=== PATIENT | male | born 1955 | race Caucasian/White ===

== ENCOUNTER 2016-04-16 05:08 | Inpatient (IN) | payer BC ==
[~2016-04-16] VITALS: Ht 190.5 cm; Wt 141.4 kg
[~2016-04-16 05:08] MED LIST: ASPI325T6 PO; BETAPACE 80MG80 MG PO; CEPHALEXIN500 M1 PO; COUMADIN4 MG PO; LIPITOR 80MG80 MG PO; NORCO 325 MG-51 TAB PO; SYNTHROID0.175 MG PO; TYLENOL 325MG325 MG PO
[2016-04-16] MEDS ORDERED: COUMADIN4 MG PO (05:22)
[2016-04-16] MEDS ORDERED: BETAPACE 120MG120 MG PO (05:22)
[2016-04-16] MEDS ORDERED: LIPITOR 40MG TA40 MG PO (05:24)
[2016-04-16] MEDS ORDERED: PROAIR HFA0.09 MG/AC IH (05:24)
[2016-04-16] MEDS ORDERED: BETAPACE 80MG80 MG PO (05:25)
[2016-04-16 05:46] LABS: BASO % 0.4 % (0.0-2.0); EOS # 0.3 (0.0-0.7); EOS % 4.2 % (0-4.0); GRAN # 4.6 (1.4-6.5); GRAN % 66.4 % (42.2-75.2); HEMATOCRIT 41.5 % (42.0-52.0); HEMOGLOBIN 14.4 g/dl (13.5-18.0); LYMPH # 1.2 (1.2-3.4); LYMPH % 17.3 % (20.0-51.0); MEAN CELL VOLUME 95 fl (80.0-100.0); MEAN CORPUSCULAR HEMOGLOBIN 33 pg (27.0-31.0); MEAN CORPUSCULAR HGB CONC 35 g/dl (33.0-37.0); MEAN PLATELET VOLUME 9.5 fl (7.4-10.4); MONO # 0.8 (0.1-0.6); MONO % 11.6 % (1.7-9.3); PLATELET COUNT 202 K/mm3 (130-400); RED BLOOD COUNT 4.38 M/mm3 (4.20-5.60); REDCELL DISTRIBUTION WIDTH-CV 12.2 % (11.5-14.5); WHITE BLOOD COUNT 6.9 K/mm3 (4.8-10.8)
[2016-04-16 05:56] LABS: INR 1.8 (0.8-3.0); PROTHROMBIN TIME 20.6 SECONDS (9.7-12.8)
[2016-04-16 05:58] LABS: ADJUSTED CALCIUM 8.8 mg/dL (8.4-10.2); ALANINE AMINOTRANSFERASE 32 U/L (21-72); ALBUMIN 3.7 gm/dL (3.5-5.0); ALKALINE PHOSPHATASE 68 U/L (50-136); ANION GAP 12 mmol/L (7-16); BLOOD UREA NITROGEN 14 mg/dL (9-20); CALCIUM 8.6 mg/dL (8.4-10.2); CARBON DIOXIDE 24 mmol/L (22-30); CHLORIDE 100 mmol/L (98-107); CREATININE, serum 0.83 mg/dL (0.66-1.25); GLUCOSE 101 mg/dL (74-106); POTASSIUM 4.1 mmol/L (3.4-5.0); SODIUM 135 mmol/L (137-145); TOTAL PROTEIN 6.9 gm/dL (6.4-8.2)
[2016-04-16 06:09] LABS: B-TYPE NATRIURETIC PEPTIDE 373 pg/mL (0-125)
[2016-04-16 06:14] LABS: TROPONIN-I < 0.012 ng/mL (0.000-0.034)
[2016-04-16 09:40] VITALS: BP 102/74; PULSE 92; TEMP 99.1
[2016-04-16 12:47] VITALS: BP 125/55; PULSE 73; TEMP 98.4
[2016-04-16 13:43] LABS: INFLUENZA B NEGATIVE
[2016-04-16 16:46] VITALS: BP 116/57; PULSE 69; TEMP 98.4
[2016-04-16 20:06] VITALS: BP 127/69; PULSE 63; TEMP 97.8
[2016-04-16 23:08] VITALS: BP 105/48; PULSE 61; TEMP 97.4
[2016-04-17] VITALS (7 sets, daily range): BP systolic 98–121; BP diastolic 51–60; PULSE 59–65; TEMP 97.6–98.6
[2016-04-17 13:33] LABS: INR 2.6 (0.8-3.0); PROTHROMBIN TIME 29.9 SECONDS (9.7-12.8)
[2016-04-18 04:10] VITALS: BP 124/61; PULSE 68; TEMP 97.9
[2016-04-18 07:23] LABS: HEMATOCRIT 41.2 % (42.0-52.0); HEMOGLOBIN 13.9 g/dl (13.5-18.0); MEAN CELL VOLUME 97 fl (80.0-100.0); MEAN CORPUSCULAR HEMOGLOBIN 33 pg (27.0-31.0); MEAN CORPUSCULAR HGB CONC 34 g/dl (33.0-37.0); PLATELET COUNT 222 K/mm3 (130-400); RED BLOOD COUNT 4.26 M/mm3 (4.20-5.60); REDCELL DISTRIBUTION WIDTH-CV 12.8 % (11.5-14.5); WHITE BLOOD COUNT 16.9 K/mm3 (4.8-10.8)
[2016-04-18 07:29] LABS: ADD PATHOLOGY DIFF REVIEW NO
[2016-04-18 07:42] VITALS: BP 123/62; PULSE 66; TEMP 97.6
[2016-04-18 07:59] LABS: PROTHROMBIN TIME 39.3 SECONDS (9.7-12.8)
[2016-04-18 08:01] LABS: BAND 5 % (0-10); NEUTROPHILS 87 % (42.0-75.2); TOTAL CELLS COUNTED 100
[2016-04-18 08:06] LABS: INR 3.4 (0.8-3.0)
[2016-04-18 10:37] VITALS: BP 117/57; PULSE 72; TEMP 97.7
[2016-04-18] MEDS ORDERED: LEVAQUIN 750MG750 M1 PO (11:20)
[2016-04-18] MEDS ORDERED: PREDNISONE20 MG PO (11:23)
[2016-04-18] MEDS ORDERED: MUCINEX DM 30 M1 TE1 PO (11:24)
[2016-04-18] MEDS ORDERED: FLONASE NASAL S16 GM NS (11:25)
[2016-04-18] MEDS ORDERED: INCRUSE EL62.5 MCG/A IH (11:27)
[2016-04-18] MEDS ORDERED: RT ADVAIR HFA 1112 G IH (11:28)
[2016-04-18] MEDS ORDERED: PROAIR HFA0.09 MG/AC IH (11:40)
[2016-04-18 15:31] VITALS: BP 105/48; PULSE 62; TEMP 97.2
[2016-04-18 19:43] VITALS: BP 134/78; PULSE 65; TEMP 97.6
[2016-04-19 00:07] VITALS: BP 126/66; PULSE 62; TEMP 97
[2016-04-19 04:29] VITALS: BP 121/60; PULSE 70; TEMP 97.7
[2016-04-19 05:05] VITALS: BP 133/73; PULSE 73; TEMP 97.8
[2016-04-19 07:21] LABS: BASO % 0.1 % (0.0-2.0); GRAN % 87.8 % (42.2-75.2); HEMATOCRIT 42.1 % (42.0-52.0); LYMPH # 1.1 (1.2-3.4); LYMPH % 7.9 % (20.0-51.0); MEAN CELL VOLUME 96 fl (80.0-100.0); MEAN CORPUSCULAR HEMOGLOBIN 32 pg (27.0-31.0); MEAN CORPUSCULAR HGB CONC 33 g/dl (33.0-37.0); MEAN PLATELET VOLUME 9.7 fl (7.4-10.4); MONO # 0.4 (0.1-0.6); MONO % 2.9 % (1.7-9.3); PLATELET COUNT 209 K/mm3 (130-400); RED BLOOD COUNT 4.39 M/mm3 (4.20-5.60); REDCELL DISTRIBUTION WIDTH-CV 12.6 % (11.5-14.5); WHITE BLOOD COUNT 13.6 K/mm3 (4.8-10.8)
[2016-04-19 07:36] VITALS: BP 119/75; PULSE 65; TEMP 98
[2016-04-19] MEDS ORDERED: CEFTIN500 MG PO (09:26)
[2016-04-19] MEDS ORDERED: MUCINEX DM 30 M1 TE1 PO (09:26)
[2016-04-19] MEDS ORDERED: PREDNISONE20 MG PO (09:26)
[2016-04-19] MEDS ORDERED: ZITHROMAX TRI-500 MG PO (09:26)
[2016-04-19] MEDS ORDERED: ROBITUSSIN A-C S1 M1 PO (09:28)
[2016-04-19] MEDS ORDERED: RT ADVAIR 228 DISKUS IH (09:28)
[2016-04-19 09:37] LABS: INR 4.3 (0.8-3.0); PROTHROMBIN TIME 50.3 SECONDS (9.7-12.8)
[2016-04-19 11:09] VITALS: BP 145/89; PULSE 69; TEMP 97.5
== END 2016-04-19 11:10 | disposition home or self-care (01) | DRG 871 ==
LOC: COL.ER 05:08 → MEDICAL 06:42
PROVIDERS: Emergency Medicine; Family Medicine; Internal Medicine; Physician Assistant
DX: A41.9 Sepsis, unspecified organism (principal); J18.9 Pneumonia, unspecified organism; J44.0 Chronic obstructive pulmonary disease with (acute) lower respiratory infection; J44.1 Chronic obstructive pulmonary disease with (acute) exacerbation; E78.5 Hyperlipidemia, unspecified; E03.9 Hypothyroidism, unspecified; I48.91 Unspecified atrial fibrillation; F17.210 Nicotine dependence, cigarettes, uncomplicated; Z79.01 Long term (current) use of anticoagulants; Z86.73 Personal history of transient ischemic attack (TIA), and cerebral infarction without residual deficits; Z95.0 Presence of cardiac pacemaker
CPT/HCPCS: 99232-AI; 99239; G0378; J0696; J2920; J2930; J7030; J7512

== ENCOUNTER 2017-01-30 08:04 | Day surgery (SDC) | payer BC ==
[~2017-01-30] VITALS: Ht 190.7 cm; Wt 146.4 kg
[~2017-01-30 08:04] MED LIST changes: +BETAPACE 120MG120 MG PO; +CEFTIN500 MG PO; +COUMADIN 1010 MG/TAB PO; +FLONASE NASAL S16 GM NS; +INCRUSE EL62.5 MCG/A IH; +LEVAQUIN 750MG750 M1 PO; +LIPITOR 40MG TA40 MG PO; +MUCINEX DM 30 M1 TE1 PO; +PREDNISONE20 MG PO; +PROAIR HFA0.09 MG/AC IH; +ROBITUSSIN A-C S1 M1 PO; +RT ADVAIR 228 DISKUS IH; +RT ADVAIR HFA 1112 G IH; +ZITHROMAX TRI-500 MG PO
[2017-01-30 10:17] VITALS: BP 127/84; PULSE 82; TEMP 97.3
[2017-01-30 10:41] LABS: INR 2.4 (0.8-3.0); PROTHROMBIN TIME 28.7 SECONDS (9.7-12.8)
[2017-01-30 10:44] LABS: POTASSIUM 4.8 mmol/L (3.4-5.0)
[2017-01-30 11:19] LABS: THYROID STIMULATING HORMONE 0.673 uIU/mL (0.465-4.680)
[2017-01-30 13:00] VITALS: BP 98/62; PULSE 57
[2017-01-30 13:15] VITALS: BP 98/70; PULSE 78
[2017-01-30 13:30] VITALS: BP 100/70; PULSE 70
[2017-01-30 13:45] VITALS: BP 108/73; PULSE 65
== END 2017-01-30 13:59 | disposition home or self-care (01) ==
LOC: COL.CAR 08:04
PROVIDERS: Internal Medicine Cardiovascular Disease
DX: I48.0 Paroxysmal atrial fibrillation (principal); E03.9 Hypothyroidism, unspecified; I42.9 Cardiomyopathy, unspecified; I11.0 Hypertensive heart disease with heart failure; I50.9 Heart failure, unspecified; J44.9 Chronic obstructive pulmonary disease, unspecified; I25.10 Atherosclerotic heart disease of native coronary artery without angina pectoris; E78.5 Hyperlipidemia, unspecified; G47.33 Obstructive sleep apnea (adult) (pediatric); I25.2 Old myocardial infarction; I27.20 Pulmonary hypertension, unspecified; I49.5 Sick sinus syndrome; E66.01 Morbid (severe) obesity due to excess calories; Z68.41 Body mass index [BMI] 40.0-44.9, adult; F17.210 Nicotine dependence, cigarettes, uncomplicated; Z79.01 Long term (current) use of anticoagulants; Z86.73 Personal history of transient ischemic attack (TIA), and cerebral infarction without residual deficits; Z79.82 Long term (current) use of aspirin; Z79.899 Other long term (current) drug therapy; Z95.0 Presence of cardiac pacemaker; Z82.49 Family history of ischemic heart disease and other diseases of the circulatory system
CPT/HCPCS: J2704; J2765; J7120

== ENCOUNTER 2019-02-07 08:17 | Day surgery (SDC) | payer BC ==
[~2019-02-07] VITALS: Ht 190.5 cm; Wt 150.3 kg
[~2019-02-07 08:17] MED LIST changes: -ASPI325T6 PO; +ASPIRIN E.C. 8181 MG PO
[2019-02-07] MEDS ORDERED: PRINIVIL20 MG PO (09:03)
[2019-02-07 09:05] LABS: HEMATOCRIT 50.7 % (42.0-52.0); MEAN CELL VOLUME 97 fl (80.0-100.0); MEAN CORPUSCULAR HEMOGLOBIN 33 pg (27.0-31.0); MEAN CORPUSCULAR HGB CONC 34 g/dl (33.0-37.0); MEAN PLATELET VOLUME 9.3 fl (7.4-10.4); PLATELET COUNT 275 K/mm3 (130-400); RED BLOOD COUNT 5.23 M/mm3 (4.20-5.60); REDCELL DISTRIBUTION WIDTH-CV 13.2 % (11.5-14.5)
[2019-02-07] MEDS ORDERED: CARDIZEM120 MG PO (09:05)
[2019-02-07 09:06] VITALS: BP 128/85; PULSE 90; TEMP 98.6
[2019-02-07 09:11] LABS: INR 1.3 (0.8-3.0); PROTHROMBIN TIME 14.8 SECONDS (9.7-12.8)
[2019-02-07 09:14] LABS: PARTIAL THROMBOPLASTIN TIME 35.8 SECONDS (26.0-37.0)
[2019-02-07 09:22] LABS: CALCIUM 9.3 mg/dL (8.4-10.2); CREATININE, serum 1.1 (0.66-1.25); POTASSIUM 5.1 mmol/L (3.4-5.0)
[2019-02-07] MEDS ORDERED: BETAPACE 80MG80 MG PO (10:17)
[2019-02-07 10:35] VITALS: BP 107/76; PULSE 64
[2019-02-07 10:50] VITALS: BP 96/75; PULSE 57
[2019-02-07 11:05] VITALS: BP 115/76; PULSE 63
[2019-02-07 11:20] VITALS: BP 115/76; PULSE 62
[2019-02-07 11:35] VITALS: BP 112/92; PULSE 59
--- NOTE | 2019-02-07 11:35 | NUR ---
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 pt has been awake and alert with reg and unlabored resps, he has been able to drink with no problem, denies any pain, and has been ambulatory with a steady gait without complaint of lightheadedness etc. iv was dc'd, cath intact, dressing was applied. I reviewed discharge instructions related to sedation, cardioversion and LINH, as well as follow up and new RX instructions. pt was given written instructions to cover all of these topics. he denied any questions or concerns at the time of his departure. he reported feeling better at time of his departure than when he arrived.
== END 2019-02-07 12:05 | disposition home or self-care (01) ==
LOC: COL.CAR 08:17
PROVIDERS: Internal Medicine Cardiovascular Disease
DX: I48.0 Paroxysmal atrial fibrillation (principal); I27.20 Pulmonary hypertension, unspecified; I08.1 Rheumatic disorders of both mitral and tricuspid valves; I42.8 Other cardiomyopathies; I65.29 Occlusion and stenosis of unspecified carotid artery; I11.0 Hypertensive heart disease with heart failure; I50.9 Heart failure, unspecified; J44.9 Chronic obstructive pulmonary disease, unspecified; I25.10 Atherosclerotic heart disease of native coronary artery without angina pectoris; Z86.73 Personal history of transient ischemic attack (TIA), and cerebral infarction without residual deficits; E11.9 Type 2 diabetes mellitus without complications; E78.5 Hyperlipidemia, unspecified; E03.9 Hypothyroidism, unspecified; I25.2 Old myocardial infarction; F17.210 Nicotine dependence, cigarettes, uncomplicated; Z83.3 Family history of diabetes mellitus; Z82.49 Family history of ischemic heart disease and other diseases of the circulatory system; G47.33 Obstructive sleep apnea (adult) (pediatric); E66.01 Morbid (severe) obesity due to excess calories
CPT/HCPCS: J2704